=== PATIENT | female | born 1990 | race African-American/Black ===

== ENCOUNTER 2017-02-10 11:03 | Emergency (ER) | payer OTHER ==
[~2017-02-10] VITALS: Ht 167.6 cm; Wt 131.8 kg
[~2017-02-10 11:03] MED LIST: DEPOP150I IM; SUMA25TA9 PO; TOPI25 PO
[2017-02-10 12:36] LABS: ADD UA MICROSCOPIC YES; APPEARANCE,URINE CLEAR (CLEAR); GLUCOSE, URINE (UA) NEGATIVE (NEGATIVE); KETONES,URINE NEGATIVE (NEGATIVE); LEUKOCYTE ESTERASE ,URINE SMALL (NEGATIVE); OCCULT BLOOD,URINE NEGATIVE (NEGATIVE); PH,URINE 6.5 (5.0-8.0); PROTEIN,URINE NEGATIVE (NEGATIVE)
[2017-02-10 12:41] LABS: RBC,URINE 0-2 /HPF (0-2); SQUAMOUS EPITHELIAL CELL,UR Few /LPF (None Seen)
[2017-02-10 13:59] VITALS: BP 123/64
== END 2017-02-10 14:00 | disposition home or self-care (01) ==
LOC: EMS 11:04
DX: N39.0 Urinary tract infection, site not specified (principal); B37.9 Candidiasis, unspecified; F17.210 Nicotine dependence, cigarettes, uncomplicated
CPT/HCPCS: 99283